=== PATIENT | female | born 1980 | race African-American/Black ===

== ENCOUNTER 2017-01-28 19:51 | Emergency (ER) | payer MEDICAID, OTHER ==
[~2017-01-28] VITALS: Ht 167.6 cm; Wt 75.0 kg
[2017-01-28 19:53] VITALS: BP 144/90; PULSE 88; RESP 16; TEMP 99.5; O2SAT 97
--- NOTE | 2017-01-28 21:10 | PD ---
Physical Exam Date Seen by Provider: Jan 28, 2017 Time Seen by Provider: 21:06 Narrative 36 y/o female with Hx. Bipolar Disorder here with Manic Episode and inability to sleep for the past 2 weeks. Has been taking Effexor and Gabpentin. Recently started the Gabapentin 2 weeks ago. Denies Suicidal or Homocidal Ideation. Vital signs reviewed. Patient stable. Awaiting Bed placement. Data Data Last Documented VS Vital Signs Date Time Temp Pulse Resp B/P Pulse Ox O2 Delivery O2 Flow Rate FiO2 01/28/17 19:53 99.5 88 16 144/90 97 Room Air [facility] Medical Record Reviewed: Yes Supervised Visit with LILLIAN: Yes Condition: Stable Bryant Ferrell Jan 28, 2017 21:10
[2017-01-28 22:00] LABS: AUTOMATED NEUTROPHIL # 3.5 TH/MM3 (1.8-7.7); BASOPHIL # 0.1 TH/MM3 (0-0.2); BASOPHIL % 0.8 % (0.0-2.0); EOSINOPHIL # 0.3 TH/MM3 (0-0.4); EOSINOPHIL % 4.5 % (0.0-4.0); HEMATOCRIT 37.1 % (35.0-46.0); HEMO FLAGS DIFF FINAL; LYMPH % 33.6 % (9.0-44.0); LYMPHOCYTE # 2.4 TH/MM3 (1.0-4.8); MEAN CELL VOLUME 73.1 FL (80.0-100.0); MEAN CORPUSCULAR HEMOGLOBIN 24.3 PG (27.0-34.0); MEAN CORPUSCULAR HGB CONC 33.2 % (32.0-36.0); MONO % 10.8 % (0.0-8.0); NEUT % 50.3 % (16.0-70.0); PLATELET COUNT 318 TH/MM3 (150-450); RED BLOOD COUNT 5.08 MIL/MM3 (4.00-5.30); RED CELL DISTRIBUTION WIDTH 13.4 % (11.6-17.2)
[2017-01-28 22:02] LABS: AMPHETAMINE, URINE NEG (NEG); BARBITURATES, URINE NEG (NEG); COCAINE, URINE NEG (NEG)
[2017-01-28 22:13] LABS: ANION GAP 7 MEQ/L (5-15); AST (GOT) 10 U/L (15-37); BICARBONATE 25.9 MEQ/L (21.0-32.0); BLOOD UREA NITROGEN 9 MG/DL (7-18); CHLORIDE 105 MEQ/L (98-107); GLOMERULAR FILTRATION RATE 59 ML/MIN (>89); POTASSIUM 3.6 MEQ/L (3.5-5.1); SODIUM (NA) 138 MEQ/L (136-145)
[2017-01-28 22:14] LABS: ALT (GPT) 15 U/L (10-53)
[2017-01-28 22:16] LABS: ALKALINE PHOSPHATASE 88 U/L (45-117); TOTAL BILIRUBIN ADULT 0.5 MG/DL (0.2-1.0)
[2017-01-28 22:47] VITALS: BP 144/90; PULSE 87; RESP 17; TEMP 98; O2SAT 100
[2017-01-28] MEDS ORDERED: clonazePAM 1 MG TAB PO ONE (23:30)
--- NOTE | 2017-01-29 00:18 | PD ---
HPI Chief Complaint: Psychiatric Symptoms Time Seen by Provider: 23:13 Travel History International Travel<30 days: No Contact w/Intl Traveler<30days: No Traveled to known affect area: No History of Present Illness HPI So 36 year-old woman who presents to the emergency department complaining "I've been having symptoms of helga". States she hasn't slept for the past 2 weeks, is in increasing amounts of obsessive, pervasive thoughts. She is a history of bipolar disorder with anxiety depression PTSD. She was taking Effexor. She states she's been under more stress recently moved to the area to get out of a relationship. History Past Medical History Narrative Medical Endorses BPD/anxiety/depression/PTSD GERD Tetanus Vaccination: Unknown : 1 Para: 1 Social History Alcohol Use: No Tobacco Use: No Allergies-Medications (Allergen,Severity, Reaction): Coded Allergies: Penicillin (Verified Allergy, Mild, "YEAST", 01/28/17) Lamictal (Verified Allergy, Unknown, RASH, 01/28/17) Review of Systems Except as stated in HPI: all other systems reviewed are Neg Physical Exam Narrative GENERAL: 36 year-old woman, well-appearing, no acute distress. SKIN: Focused skin assessment warm/dry. CARDIOVASCULAR: Regular rate and rhythm. No murmur appreciated. RESPIRATORY: No accessory muscle use. Clear to auscultation. Breath sounds equal bilaterally. GASTROINTESTINAL: Abdomen soft, non-tender, nondistended. Hepatic and splenic margins not palpable. MUSCULOSKELETAL: No obvious deformities. No clubbing. No cyanosis. No edema. NEUROLOGICAL: Awake and alert. No obvious cranial nerve deficits. Motor grossly within normal limits. Normal speech. PSYCHIATRIC: Speech is a little bit rapid but coherent. Insight and judgment are normal. She appears a little bit stressed and on edge. Data Data Last Documented VS Vital Signs Date Time Temp Pulse Resp B/P Pulse Ox O2 Delivery O2 Flow Rate FiO2 01/28/17 22:47 98.0 87 17 144/90 100 01/28/17 19:53 Room Air Orders Complete Blood Count With Diff (01/28/17 21:10) Comprehensive Metabolic Panel (01/28/17 21:10) Ed Urine Pregnancytest Poc (01/28/17 21:10) Psych Screen (01/28/17 21:10) Drug Screen, Random Urine (01/28/17 21:10) Clonazepam (Klonopin) (01/28/17 23:30) Diet Regular Basic (01/29/17 Breakfast) Labs Laboratory Tests Test 01/28/17 21:20 White Blood Count 7.0 TH/MM3 Red Blood Count 5.08 MIL/MM3 Hemoglobin 12.3 GM/DL Hematocrit 37.1 % Mean Corpuscular Volume 73.1 FL Mean Corpuscular Hemoglobin 24.3 PG Mean Corpuscular Hemoglobin 33.2 % Concent Red Cell Distribution Width 13.4 % Platelet Count 318 TH/MM3 Mean Platelet Volume 7.8 FL Neutrophils (%) (Auto) 50.3 % Lymphocytes (%) (Auto) 33.6 % Monocytes (%) (Auto) 10.8 % Eosinophils (%) (Auto) 4.5 % Basophils (%) (Auto) 0.8 % Neutrophils # (Auto) 3.5 TH/MM3 Lymphocytes # (Auto) 2.4 TH/MM3 Monocytes # (Auto) 0.8 TH/MM3 Eosinophils # (Auto) 0.3 TH/MM3 Basophils # (Auto) 0.1 TH/MM3 CBC Comment DIFF FINAL Differential Comment Sodium Level 138 MEQ/L Potassium Level 3.6 MEQ/L Chloride Level 105 MEQ/L Carbon Dioxide Level 25.9 MEQ/L Anion Gap 7 MEQ/L Blood Urea Nitrogen 9 MG/DL Creatinine 1.05 MG/DL Estimat Glomerular Filtration 59 ML/MIN Rate Random Glucose 96 MG/DL Calcium Level 8.6 MG/DL Total Bilirubin 0.5 MG/DL Aspartate Amino Transf 10 U/L (AST/SGOT) Alanine Aminotransferase 15 U/L (ALT/SGPT) Alkaline Phosphatase 88 U/L Total Protein 7.9 GM/DL Albumin 4.0 GM/DL Urine Opiates Screen NEG Urine Barbiturates Screen NEG Urine Amphetamines Screen NEG Urine Benzodiazepines Screen NEG Urine Cocaine Screen NEG Urine Cannabinoids Screen NEG MDM Medical Decision Making Medical Screen Exam Complete: Yes Emergency Medical Condition: Yes Interpretation(s) LABS: CBC is unremarkable. CMP is unremarkable. Urine drug screen is unremarkable Differential Diagnosis Bipolar disorder, hypomania, anxiety, adjustment reaction, other Narrative Course Medical decision making INITIAL cause a 36 year-old woman presents to the emergency department complaining of helga symptoms requesting to see psychiatry. She looks well. She is not obviously frankly delusional or psychotic. She was given Klonopin to help with relaxation and sleep. She is medically clear for voluntary psychiatric evaluation. Condition: Stable Marty Cheung MD Jan 29, 2017 00:18
[2017-01-29] MEDS ORDERED: VENL75TA PO (00:39)
[2017-01-29] MEDS ORDERED: GABA100C4 PO (00:39)
[2017-01-29 02:07] VITALS: BP 110/66; PULSE 82; RESP 18; TEMP 97.9; O2SAT 100
[2017-01-29 05:32] VITALS: BP 128/85; PULSE 74; RESP 16; TEMP 98; O2SAT 100
[2017-01-29 07:05] VITALS: BP 120/76; PULSE 76; RESP 17; TEMP 97.9; O2SAT 100
[2017-01-29 09:34] VITALS: BP 123/78; TEMP 97.8
== END 2017-01-29 09:35 | disposition home or self-care (01) ==
LOC: NEPD 19:51
DX: F30.9 Manic episode, unspecified (principal); K21.9 Gastro-esophageal reflux disease without esophagitis
CPT/HCPCS: 80053; 80307; 84703; 85025; 99284

== ENCOUNTER 2017-02-01 07:13 | Emergency (ER) | payer MEDICAID, OTHER ==
[~2017-02-01] VITALS: Ht 162.6 cm; Wt 75.0 kg
[~2017-02-01 07:13] MED LIST: GABA100C4 PO; VENL75TA PO
[2017-02-01 07:20] VITALS: BP 145/84; PULSE 82; RESP 14; TEMP 98.7; O2SAT 98
--- NOTE | 2017-02-01 08:29 | PD ---
HPI Chief Complaint: Psychiatric Symptoms Time Seen by Provider: 07:29 Travel History International Travel<30 days: No Contact w/Intl Traveler<30days: No Traveled to known affect area: No History of Present Illness HPI 36-year-old female states she is having difficulty getting in with [facility] and she wants her medications adjusted. She states that she was just here and given this advice. She denies suicidal or homicidal ideation to me but states she's not really wanting to talk about it. She agrees to talk with our psychiatry team. She denies any current pain or significant medical change. History is limited. [facility] Past Medical History Hiatal Hernia: Yes Inguinal Hernia: Yes ?: Not LMP: 02/01/17 : 1 Para: 1 Past Surgical History Abdominal Surgery: Yes (hernia repair) Social History Alcohol Use: No Tobacco Use: No Substance Use: No (Denies) Allergies-Medications (Allergen,Severity, Reaction): Coded Allergies: Trazodone (Verified Allergy, Severe, 02/01/17) Penicillin (Verified Allergy, Mild, "YEAST", 02/01/17) Lamictal (Verified Allergy, Unknown, RASH, 02/01/17) Uncoded Allergies: siphys (Allergy, Severe, suicidal thoughts, 02/01/17) Reported Meds & Prescriptions Reported Meds & Active Scripts Active Reported Gabapentin 100 Mg Cap 100 Mg PO TID Effexor (Venlafaxine HCl) 75 Mg Tab 75 Mg PO DAILY Review of Systems ROS Limitations: Poor Historian Except as stated in HPI: all other systems reviewed are Neg Physical Exam Narrative GENERAL: Well-nourished, well-developed patient. SKIN: Warm and dry. HEAD: Normocephalic and atraumatic. EYES: No injection or drainage. ENT: No nasal drainage noted. NECK: Supple, trachea midline. CARDIOVASCULAR: Regular rate and rhythm RESPIRATORY: No increased effort. No accessory muscle use. GASTROINTESTINAL: Abdomen soft, non-tender, nondistended. EXTREMITIES: No edema. NEUROLOGICAL: Awake and alert. Motor and sensory grossly within normal limits. Normal speech. Data Data Last Documented VS Vital Signs Date Time Temp Pulse Resp B/P Pulse Ox O2 Delivery O2 Flow Rate FiO2 02/01/17 07:20 98.7 82 14 145/84 98 Orders Psych Screen (02/01/17 07:33) [facility] Medical Decision Making Medical Screen Exam Complete: Yes Emergency Medical Condition: Yes Medical Record Reviewed: Yes (past history confirm, blood work on 01/28 without significant abnormalities) Differential Diagnosis Depression, anxiety, medication adjustment Narrative Course Recent lab work reviewed and without medical change her complaint currently. Patient medically cleared. Mental health screening discussed with the patient. Psychiatric screen ordered. No current indication for Tatiana Trejo MD Feb 01, 2017 08:29
[2017-02-01 15:40] VITALS: BP 115/83; PULSE 79; RESP 18; TEMP 98.5; O2SAT 100
== END 2017-02-01 21:13 | disposition home or self-care (01) ==
LOC: NEPE 07:13 → NEPJ 21:13
DX: F31.9 Bipolar disorder, unspecified (principal)
CPT/HCPCS: 99283